=== PATIENT | female | born 1970 ===

== ENCOUNTER 2019-09-14 11:47 | Emergency (ER) | payer MEDICAID, OTHER ==
[~2019-09-14] VITALS: Ht 165.1 cm; Wt 63.5 kg
[2019-09-14] MEDS ORDERED: LORazepam 2MG/ML-1ML VIAL IV ONE (12:00)
[2019-09-14 13:26] LABS: Basophils # (auto) 0 uL; Basophils % (auto) 0.3 % (0.0-2.0); Eosinophils # (auto) 0 uL; Hematocrit 42.7 % (36.0-46.0); Hemoglobin 14.5 g/dL (12.2-16.2); Lymphocytes # (auto) 0.8 uL; Lymphocytes % (auto) 8.7 % (10.0-50.0); Mean Corpuscular Hemoglobin 31.1 pg (28.0-32.0); Mean Corpuscular Volume 91.4 fL (80.0-100.0); Monocytes # (auto) 0.5 uL; Monocytes % (auto) 5.5 % (0.0-12.0); Neutrophils % (auto) 85.5 % (37.0-80.0); Platelet Count (auto) 254 10^3/uL (140-450); Red Blood Cells 4.67 10^6/uL (4.0-5.20); Red Cell Distribution Width 13.4 % (11.8-14.3); White Blood Cell 9.4 10^3/uL (4.4-10.8)
[2019-09-14 13:37] LABS: Calcium 9.2 mg/dL (8.5-10.1); Chloride 106 mmol/L (98-107); Potassium 3.6 mmol/L (3.5-5.1); Sodium 140 mmol/L (136-145)
[2019-09-14 13:46] LABS: Alanine Aminotransferase 22 U/L (13-56); Albumin 4.1 g/dL (3.4-5.0); Alkaline Phosphatase 67 U/L (45-117); Anion Gap 11 (5-15); Aspartate Aminotransferase 15 U/L (15-37); BUN/Creatinine Ratio 8.6; Bilirubin, Total 0.3 mg/dL (0.2-1.0); Blood Alcohol < 3.0 mg/dL (0-5); Blood Urea Nitrogen 7 mg/dL (7-18); Carbon Dioxide 23 mmol/L (21-32); GFR African American 97 mL/min; GFR Non-African American 80 mL/min; Glucose 134 mg/dL (74-106); Total Protein 8.1 g/dL (6.4-8.2)
[2019-09-14 13:53] LABS: Alcohol, Urine < 3.0 mg/dL (0-5); Amphetamine Screen, Urine NEGATIVE (NEGATIVE); Barbiturate Scree,Urine NEGATIVE (NEGATIVE); Benzodiazephine Screen, Urine POSITIVE (NEGATIVE); Cannabinoid Screen, Urine NEGATIVE (NEGATIVE); Cocaine Screen, Urine NEGATIVE (NEGATIVE); Opiate Scree,Urine NEGATIVE (NEGATIVE); Phencyclidine Screen, Urine NEGATIVE (NEGATIVE)
[2019-09-14 17:45] VITALS: BP 131/68
== END 2019-09-14 18:05 | disposition home or self-care (01) ==
LOC: EDBD 11:47 → ER 11:47
DX: F41.9 Anxiety disorder, unspecified (principal); R41.0 Disorientation, unspecified
CPT/HCPCS: 36415; 70450; 80053; 80307; 80320; 81025; 84484; 85025